=== PATIENT | female | born 1955 | race Caucasian/White ===

== ENCOUNTER 2019-12-13 15:52 | Inpatient (IN) | payer MEDICARE ==
[~2019-12-13] VITALS: Ht 157.5 cm; Wt 65.9 kg
[2019-12-13 16:36] LABS: BASOPHILS 0.4 % (0-2); EOSINOPHILS 1.2 % (0-7); HEMATOCRIT 32.1 % (36.0-48.0); HEMOGLOBIN 9.9 g/dL (12-16); IMMATURE GRANULOCYTES 0.4 % (0-5); LYMPHOCYTES 16.8 % (15-50); MCH 28.6 pg (26.0-34.0); MCHC 30.8 g/dL (31.0-37.0); MCV 92.8 fL (80.0-100.0); MEAN PLATELET VOLUME 10.4 fL (7.4-10.4); MONOCYTES 6.6 % (2-11); NEUTROPHILS 74.6 % (40-80); PLATELET COUNT 162 10x3/uL (130-400); RBC 3.46 10x6/uL (4.00-5.40); RDW 13.8 % (11.5-14.5); WBC 8.1 10x3/uL (4.8-10.8)
[2019-12-13 16:48] LABS: APTT 41.1 SECONDS (22.8-39.4); INR 1.23 (0.85-1.17); PROTIME 15.4 SECONDS (11.6-15.0)
[2019-12-13 17:11] LABS: CALC OSMOLALITY 268 mosm/kg (275-300); CARBON DIOXIDE 29.8 mmol/L (21.0-32.0); CHLORIDE - SERUM 101 mmol/L (98-107); CREATININE - SERUM 1.4 mg/dL (0.6-1.3); GLUCOSE 104 mg/dL (74-106); POTASSIUM - SERUM 3.3 mmol/L (3.5-5.1); SODIUM 135 mmol/L (136-145); UREA NITROGEN 10 mg/dL (7-18); eGFR NON AFRICAN AMERICAN 40 mL/min (90-120)
--- NOTE | 2019-12-13 17:15 | NUR ---
PER PROVIDER NS IV 1,000 CC BOLUS TO ADMINISTER FOR LOW BP
[2019-12-13 17:19] VITALS: BP 95/44
[2019-12-13 17:28] LABS: ALBUMIN 2.4 g/dL (3.4-5.0); ALKALINE PHOSPHATASE 68 U/L (30-120); ALT (SGPT) 9 U/L (10-68); BILIRUBIN - TOTAL 0.27 mg/dL (0.2-1.3); CKMB 0.4 U/L (0.0-3.6); CREATINE KINASE 18 UL (21-215); MAGNESIUM - SERUM 1.4 mg/dL (1.8-2.4); PROTEIN - SERUM 5.6 g/dL (6.4-8.2)
--- NOTE | 2019-12-13 17:30 | NUR ---
OCCULT STOOL NEGATIVE
[2019-12-13 17:31] LABS: TROPONIN-I < 0.017 ng/mL (0.000-0.060)
[2019-12-13 18:16] VITALS: BP 116/73
[2019-12-13] MEDS ORDERED: HYDROCODON-ACE1 EA10 PO (22:45)
[2019-12-13] MEDS ORDERED: NEURONTIN 300300 MG PO (22:46)
[2019-12-13] MEDS ORDERED: ZANAFLEX4 MG PO (22:48)
[2019-12-13] MEDS ORDERED: TRICOR145 MG PO (22:49)
[2019-12-13] MEDS ORDERED: FOLIC ACID1 MG PO (22:50)
[2019-12-13] MEDS ORDERED: ESTRACE1 MG PO (22:52)
[2019-12-13] MEDS ORDERED: LOTENSIN 10 MG10 MG PO (22:53)
[2019-12-13] MEDS ORDERED: PROTONIX40 MG PO (22:54)
[2019-12-13] MEDS ORDERED: LOPRESSOR25 MG PO (22:55)
[2019-12-13] MEDS ORDERED: CYMBALTA60 MG PO (22:56)
[2019-12-13] MEDS ORDERED: METHOTREXATE2.5 MG PO (22:57)
[2019-12-13] MEDS ORDERED: TRAZODONE HCL50 MG PO (22:58)
[2019-12-13] MEDS ORDERED: VENTOLIN HFA [SP8 GM INH (22:59)
[2019-12-13 23:17] VITALS: BP 127/61; BMI 26.6
[2019-12-13 23:28] LABS: CKMB 0.2 U/L (0.0-3.6); CREATINE KINASE 24 UL (21-215)
[2019-12-13 23:30] LABS: TROPONIN-I < 0.017 ng/mL (0.000-0.060)
--- NOTE | 2019-12-14 03:38 | NUR ---
ALERT AND ORENTED ABLE TO VOICE NEEDS AND WANTS TO STAFF. ON ROOM AIR. IV IS A 20 GRANT TO THE RIGHT WRIST, WITH NS PER ORDERS. SLING IN PLACE TO LEFT ARM. CALL LIGHT AND WATER IN REACH
[2019-12-14 04:00] VITALS: BP 166/91
[2019-12-14 07:01] LABS: BASOPHILS 0.4 % (0-2); EOSINOPHILS 1.8 % (0-7); HEMATOCRIT 36.9 % (36.0-48.0); HEMOGLOBIN 11.5 g/dL (12-16); IMMATURE GRANULOCYTES 0.2 % (0-5); LYMPHOCYTES 23.4 % (15-50); MCH 28.6 pg (26.0-34.0); MCHC 31.2 g/dL (31.0-37.0); MCV 91.8 fL (80.0-100.0); MEAN PLATELET VOLUME 10.7 fL (7.4-10.4); MONOCYTES 8.4 % (2-11); NEUTROPHILS 65.8 % (40-80); PLATELET COUNT 195 10x3/uL (130-400); RBC 4.02 10x6/uL (4.00-5.40); RDW 13.6 % (11.5-14.5)
[2019-12-14 08:00] VITALS: BP 176/86
[2019-12-14 08:10] LABS: ALBUMIN 2.5 g/dL (3.4-5.0); ALKALINE PHOSPHATASE 91 U/L (30-120); ALT (SGPT) 14 U/L (10-68); BILIRUBIN - TOTAL 0.41 mg/dL (0.2-1.3); CALC OSMOLALITY 280 mosm/kg (275-300); CALCIUM 8.5 mg/dL (8.5-10.1); CARBON DIOXIDE 24.8 mmol/L (21.0-32.0); CHLORIDE - SERUM 103 mmol/L (98-107); CHOL - HDL RATIO 2.8 ratio (2.3-4.1); CHOLESTEROL, TOTAL 125 mg/dL (0-200); CKMB 0.5 U/L (0.0-3.6); CREATINE KINASE 30 UL (21-215); CREATININE - SERUM 0.9 mg/dL (0.6-1.3); GLUCOSE 87 mg/dL (74-106); HDL CHOLESTEROL 45 mg/dL (32-96); LDL CHOLESTEROL 61 mg/dL (0-100); LDL-HDL RATIO 1.4 ratio (1.5-3.5); MAGNESIUM - SERUM 1.4 mg/dL (1.8-2.4); PHOSPHOROUS 2.4 mg/dL (2.5-4.9); POTASSIUM - SERUM 3.1 mmol/L (3.5-5.1); PRO BNP 474 pg/mL (0-125); PROTEIN - SERUM 6.8 g/dL (6.4-8.2); SODIUM 142 mmol/L (136-145); THYROID STIMULATING HORMONE 0.41 uIU/mL (0.36-3.74); TRIGLYCERIDE 95 mg/dL (30-200); TROPONIN-I < 0.017 ng/mL (0.000-0.060); UREA NITROGEN 11 mg/dL (7-18); eGFR NON AFRICAN AMERICAN 67 mL/min (90-120)
--- NOTE | 2019-12-14 09:00 | NUR ---
ASSESSMENT PER FLOW SHEET. PATIENT IS WITHOUT DISTRESS.CALL LIGHT IN REACH
[2019-12-14 09:56] VITALS: Ht 157.5 cm; Wt 65.9 kg
[2019-12-14 12:49] LABS: CKMB 0.2 U/L (0.0-3.6); CREATINE KINASE 30 UL (21-215)
[2019-12-14 12:51] LABS: TROPONIN-I < 0.017 ng/mL (0.000-0.060)
[2019-12-14] MEDS ORDERED: PERCOCET 5-3251 TAB PO (13:08)
[2019-12-14 14:13] VITALS: BP 192/93
[2019-12-14] MEDS ORDERED: NICODERM CQ1 EAC3 TOPICAL (15:09)
[2019-12-14 16:44] VITALS: BP 187/79
[2019-12-14 20:00] VITALS: BP 169/84
[2019-12-15 04:00] VITALS: BP 146/85
[2019-12-15 07:09] LABS: CALC OSMOLALITY 281 mosm/kg (275-300); CALCIUM 8.6 mg/dL (8.5-10.1); CARBON DIOXIDE 27.6 mmol/L (21.0-32.0); CHLORIDE - SERUM 103 mmol/L (98-107); CREATININE - SERUM 0.7 mg/dL (0.6-1.3); GLUCOSE 93 mg/dL (74-106); MAGNESIUM - SERUM 1.4 mg/dL (1.8-2.4); PHOSPHOROUS 2.6 mg/dL (2.5-4.9); SODIUM 142 mmol/L (136-145); UREA NITROGEN 9 mg/dL (7-18); eGFR NON AFRICAN AMERICAN 89 mL/min (90-120)
[2019-12-15 07:29] LABS: POTASSIUM - SERUM 2.7 mmol/L (3.5-5.1)
--- NOTE | 2019-12-15 08:00 | NUR ---
PATIENT IN BED WITH IV INTACT. NO COMPLAINTS OR SIGNS OF DISTRESS. LEFT ARM IN SLING AT THIS TIME. CALL LIGHT WITHINR EACH.
[2019-12-15 08:03] LABS: BASOPHILS 0.2 % (0-2); EOSINOPHILS 2.1 % (0-7); HEMATOCRIT 36.5 % (36.0-48.0); HEMOGLOBIN 11.6 g/dL (12-16); IMMATURE GRANULOCYTES 0.2 % (0-5); LYMPHOCYTES 24.9 % (15-50); MCH 28.7 pg (26.0-34.0); MCHC 31.8 g/dL (31.0-37.0); MCV 90.3 fL (80.0-100.0); MEAN PLATELET VOLUME 10.5 fL (7.4-10.4); MONOCYTES 7.7 % (2-11); NEUTROPHILS 64.9 % (40-80); PLATELET COUNT 158 10x3/uL (130-400); RBC 4.04 10x6/uL (4.00-5.40); RDW 13.6 % (11.5-14.5); WBC 5.8 10x3/uL (4.8-10.8)
[2019-12-15 10:41] VITALS: BP 132/79
[2019-12-15 14:11] VITALS: BP 140/60
--- NOTE | 2019-12-15 17:09 | NUR ---
PATIENT RECIEVED LAST POTASSIUM AND NEURONTIN AT THIS TIME. IV REMOVED WITH CATH TIP INTACT. DISCHARGE PAPERS RECIEVED WITH PRESCRIPTION. NO QUESTIONS AT THIS TIME. SISTER AT BEDSIDE. ESCORTED PATIENT DOWN TO ER WITH PERSONAL BELONGINGS TO PRIVATE VEHICLE.
== END 2019-12-15 17:13 | disposition home or self-care (01) | DRG 315 ==
LOC: D.ER 15:52 → D.EDHOLD 18:35 → D.MS 18:35
PROVIDERS: Family Medicine; ADMIT Family Medicine; ATTEND Family Medicine
DX: I95.9 Hypotension, unspecified (principal); I24.8 Other forms of acute ischemic heart disease; N17.9 Acute kidney failure, unspecified; E87.6 Hypokalemia; E11.9 Type 2 diabetes mellitus without complications; I10 Essential (primary) hypertension; F17.200 Nicotine dependence, unspecified, uncomplicated; D64.9 Anemia, unspecified; S46.002A Unspecified injury of muscle(s) and tendon(s) of the rotator cuff of left shoulder, initial encounter; X58.XXXA Exposure to other specified factors, initial encounter; K21.9 Gastro-esophageal reflux disease without esophagitis; E78.5 Hyperlipidemia, unspecified; R07.9 Chest pain, unspecified; G89.29 Other chronic pain; M54.9 Dorsalgia, unspecified; E83.42 Hypomagnesemia